=== PATIENT | male | born 1980 | race Caucasian/White ===

== ENCOUNTER 2017-02-08 02:51 | Emergency (ER) | payer BC ==
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
[2017-02-08] MEDS ORDERED: ONDANSETRON 4 MG TAB.RAPDIS PO ONE (07:21)
[2017-02-08] MEDS ORDERED: OXYCODONE-ACETAMINOPHEN 5-325 MG TABLET PO ONE ×2 (07:21→10:25)
[2017-02-08] MEDS ORDERED: DEXAMETHASONE SOD PHOS INJ 10 MG/1 ML VIAL IV ONE (08:57)
[2017-02-08 09:30] LABS: ABSOLUTE EOSINOPHILS # (AUTO) 0.4 10^3/uL (0.0-0.6); ABSOLUTE LYMPHOCYTES (AUTO) 2.3 10^3/uL (0.5-4.7); ABSOLUTE MONOCYTES (AUTO) 0.8 10^3/uL (0.1-1.4); ABSOLUTE NEUT (AUTO) 4.3 10^3/uL (1.7-8.2); BASOPHILS % (AUTO) 0.3 % (0-2); HEMATOCRIT 44.7 % (37.9-51.0); HEMOGLOBIN 15.1 g/dL (13.5-17.0); HGB HCT DIFFERENCE 0.6; LYMPHOCYTES % (AUTO) 29.7 % (13-45); MEAN CORPUSCULAR HEMOGLOBIN 30.1 pg (27.0-33.4); MEAN CORPUSCULAR HGB CONC 33.9 g/dL (32.0-36.0); MEAN CORPUSCULAR VOLUME 89 fl (80-97); MONOCYTES % (AUTO) 9.8 % (3-13); RED BLOOD COUNT 5.03 10^6/uL (4.35-5.55); RED CELL DISTRIBUTION WIDTH 13.4 % (11.5-14.0); SEGMENTED NEUTROPHILS % (AUTO) 55.2 % (42-78); WHITE BLOOD COUNT 7.8 10^3/uL (4.0-10.5)
[2017-02-08 09:48] LABS: ALANINE AMINOTRANSFERASE 26 U/L (21-72); ALBUMIN 4.1 g/dL (3.5-5.0); ALKALINE PHOSPHATASE 76 U/L (38-126); ANION GAP 12 (5-19); ASPARTATE AMINO TRANSFERASE 22 U/L (17-59); BILIRUBIN,DIRECT 0.1 mg/dL (0.0-0.4); BILIRUBIN,TOTAL 0.3 mg/dL (0.2-1.3); BLOOD UREA NITROGEN 13 mg/dL (7-20); CALCIUM 9.2 mg/dL (8.4-10.2); CARBON DIOXIDE 25 mmol/L (22-30); CHLORIDE 106 mmol/L (98-107); CREATININE RESULT 1.04 mg/dL (0.52-1.25); GLUCOSE 129 mg/dL (75-110); POTASSIUM 4.6 mmol/L (3.6-5.0); SODIUM 143.4 mmol/L (137-145)
[2017-02-08] MEDS ORDERED: CEFTRIAXONE 1 GM/D5W RTU 50 ML IV SCH (10:00)
[2017-02-08 10:07] LABS: ERYTHROCYTE SEDIMENTATION RATE 3 mm/hr (0-15)
[2017-02-08 10:41] VITALS: BP 118/84
== END 2017-02-08 10:37 | disposition home or self-care (01) ==
LOC: ER 02:51
DX: S05.91XA Unspecified injury of right eye and orbit, initial encounter (principal); L08.9 Local infection of the skin and subcutaneous tissue, unspecified; W50.0XXA Accidental hit or strike by another person, initial encounter; Z90.01 Acquired absence of eye; F17.200 Nicotine dependence, unspecified, uncomplicated
CPT/HCPCS: 99284; 96375; 96365; 36415; 87040; 85025; 85652; 80053; 70487; S0119; J0696; J1100

== ENCOUNTER 2017-03-03 19:05 | Emergency (ER) | payer BC ==
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
[2017-03-03] MEDS ORDERED: HYDROCODONE/ACETAMINOPHEN 5-325 MG 6 TAB/DSPK PO PRN (20:53)
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
[2017-03-03 21:17] VITALS: BP 129/79
== END 2017-03-03 21:10 | disposition home or self-care (01) ==
LOC: ER 19:05
DX: S09.90XA Unspecified injury of head, initial encounter (principal); S63.501A Unspecified sprain of right wrist, initial encounter; S83.92XA Sprain of unspecified site of left knee, initial encounter; S39.012A Strain of muscle, fascia and tendon of lower back, initial encounter; R51 Headache; M25.531 Pain in right wrist; M25.562 Pain in left knee; M54.5 Low back pain; Y04.8XXA Assault by other bodily force, initial encounter; F17.200 Nicotine dependence, unspecified, uncomplicated
CPT/HCPCS: 70450; 72110; 99284

== ENCOUNTER 2017-03-28 23:46 | Emergency (ER) | payer BC, OTHER ==
[2017-03-29] MEDS ORDERED: IBUPROFEN 600 MG TABLET PO ONE (03:18)
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
[2017-03-29] MEDS ORDERED: HYDROCODONE/ACETAMINOPHEN 5-325 MG 6 TAB/DSPK PO PRN (05:05)
[2017-03-29 07:54] VITALS: BP 124/63
== END 2017-03-29 07:35 | disposition home or self-care (01) ==
LOC: ER 23:46
DX: M25.521 Pain in right elbow (principal); S16.1XXA Strain of muscle, fascia and tendon at neck level, initial encounter; M25.531 Pain in right wrist; M54.5 Low back pain; M25.562 Pain in left knee; V29.60XA Unspecified motorcycle rider injured in collision with unspecified motor vehicles in traffic accident, initial encounter; Z88.0 Allergy status to penicillin; Z98.890 Other specified postprocedural states
CPT/HCPCS: 99284; 73562; 72110; 73110; 72125; L3984

== ENCOUNTER 2017-04-04 20:52 | Emergency (ER) | payer BC, OTHER ==
[2017-04-04] MEDS ORDERED: LIDOCAINE 1% INJ-PF (10 MG/ML) 30 ML SDV INJ ONE (22:34)
[2017-04-04] MEDS ORDERED: OXYCODONE-ACETAMINOPHEN 5-325 MG TABLET PO ONE (22:34)
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
[2017-04-05 00:07] VITALS: BP 116/79
== END 2017-04-05 00:05 | disposition home or self-care (01) ==
LOC: ER 20:52
PROC: 0H98XZZ Drainage of Buttock Skin, External Approach (ICD-10-PCS; principal; 2017-04-04)
DX: L02.31 Cutaneous abscess of buttock (principal); G89.29 Other chronic pain; M54.5 Low back pain; V29.9XXA Motorcycle rider (driver) (passenger) injured in unspecified traffic accident, initial encounter; Z88.0 Allergy status to penicillin; Z87.891 Personal history of nicotine dependence
CPT/HCPCS: 99283; 10060; J3490

== ENCOUNTER 2017-04-10 18:37 | Observation (INO) | payer BC ==
[2017-04-10] MEDS ORDERED: MORPHINE SULFATE 10 MG/ML INJ IV ONE ×2 (19:15→20:07)
--- NOTE | 2017-04-10 19:20 | ER Document Report ---
HPI - HPI Patient complains to provider of: abscess Onset: Other - 2 weeks Onset/Duration: Worse Quality of pain: Sharp Pain Level: 5 Context: Complains of abscess to buttock that started 2 weeks ago. Patient states he was seen here 1 week ago and had this area drained and was placed on antibiotics. Patient states he has been compliant with taking his Keflex and Bactrim but reports increased tenderness and chills and subjective fever at home. Patient denies any history of MRSA or any history of Crohn's disease. Associated Symptoms: Chills, Fever, Other - Abscess to buttock Exacerbated by: Movement Relieved by: Denies Similar symptoms previously: Yes Recently seen / treated by doctor: Yes - ROS ROS below otherwise negative: Yes Systems Reviewed and Negative: Yes All other systems reviewed and negative - CONSTITUTIONAL Constitutional: REPORTS: Fever, Chills - NEURO Neurology: DENIES: Weakness - CARDIOVASCULAR Cardiovascular: DENIES: Chest pain - GASTROINTESTINAL Gastrointestinal: DENIES: Nausea, Patient vomiting - DERM Skin Color: Normal Notes: abscess to left buttock Past Medical History - General Information source: Patient - Social History Smoking Status: Current Every Day Smoker - vape Chew tobacco use (# tins/day): No Frequency of alcohol use: None Drug Abuse: None Occupation: none Family History: Reviewed & Not Pertinent Patient has suicidal ideation: No Patient has homicidal ideation: No - Medical History Medical History: Negative - Past Medical History Cardiac Medical History: Denies: Hx Coronary Artery Disease, Hx Heart Attack, Hx Hypertension Pulmonary Medical History: Denies: Hx Asthma, Hx Bronchitis, Hx COPD, Hx Pneumonia Neurological Medical History: Denies: Hx Cerebrovascular Accident, Hx Seizures Endocrine Medical History: Denies: Hx Diabetes Mellitus Type 1, Hx Diabetes Mellitus Type 2 Renal/ Medical History: Denies: Hx Peritoneal Dialysis GI Medical History: Denies: Hx Hepatitis, Hx Hiatal Hernia, Hx Ulcer Musculoskeltal Medical History: Denies Hx Arthritis Skin Medical History: Denies Hx MRSA Psychiatric Medical History: Denies: Hx Depression Infectious Medical History: Denies: Hx Hepatitis Past Surgical History: Reports: Hx Abdominal Surgery - 2 hernia, Hx Inguinal Hernia - 2 hernias, Hx Orthopedic Surgery - 2x on left knee, Other - right eye surgery. Denies: Hx Open Heart Surgery, Hx Pacemaker - Immunizations Hx Diphtheria, Pertussis, Tetanus Vaccination: Yes Hx Pneumococcal Vaccination: 10/11/00 Vertical Provider Document - CONSTITUTIONAL Agree With Documented VS: Yes Exam Limitations: No Limitations General Appearance: WD/WN, No Apparent Distress - INFECTION CONTROL TRAVEL OUTSIDE OF THE [place] IN LAST 30 DAYS: No - HEENT HEENT: Atraumatic, Normocephalic - NECK Neck: Normal Inspection, Supple - RESPIRATORY Respiratory: Breath Sounds Normal, No Respiratory Distress O2 Sat by Pulse Oximetry: 97 - CARDIOVASCULAR Cardiovascular: Regular Rate, Regular Rhythm - GI/ABDOMEN Notes: RN Rickie as standby Patient with erythematous, tender indurated area to left buttock that extend to the perianal area. Patient with tenderness with digital rectal exam. - MUSCULOSKELETAL/EXTREMETIES Musculoskeletal/Extremeties: MAEW - NEURO Level of Consciousness: Awake, Alert, Appropriate Motor/Sensory: No Motor Deficit - DERM Integumentary: Warm, Dry Course - Re-evaluation Re-evalutation: 04/10/17 19:[address] Whitt who agrees to evaluate patient in the emergency department. 04/10/17 19:54 dr Whitt to bedside for exam 04/10/17 20:00 Dr Whitt recommends NS 150 ml/hr and levaquin 750 mg iv, plans to take pt to OR - Vital Signs Vital signs: Temp Pulse Resp BP Pulse Ox 98.3 F 94 18 120/76 97 04/10/17 18:57 04/10/17 18:57 04/10/17 18:57 04/10/17 18:57 04/10/17 18:57 - Laboratory Result Diagrams: 04/10/17 19:30 04/10/17 19:30 Laboratory results interpreted by me: 04/10/17 20:17 Labs- All tests 24 hr 04/10/17 04/10/17 19:30 19:30 WBC 9.1 RBC 5.04 Hgb 15.0 Hct 45.3 MCV 90 MCH 29.7 MCHC 33.1 RDW 12.2 Plt Count 204 Seg Neutrophils % 68.4 Lymphocytes % 18.3 Monocytes % 10.8 Eosinophils % 2.1 Basophils % 0.4 Absolute Neutrophils 6.2 Absolute Lymphocytes 1.7 Absolute Monocytes 1.0 Absolute Eosinophils 0.2 Absolute Basophils 0.0 Sodium 141.7 Potassium 4.4 Chloride 105 Carbon Dioxide 26 Anion Gap 11 BUN 16 Creatinine 0.97 Est GFR ( Amer) > 60 Est GFR (Non-Af Amer) > 60 Glucose 81 Calcium 9.2 Discharge - Discharge Clinical Impression: Perianal abscess Condition: Stable Disposition: ADMITTED OBSERVATION Admitting Provider: Surgicalist Unit Admitted: Medical Floor
[2017-04-10 19:41] LABS: ABSOLUTE EOSINOPHILS # (AUTO) 0.2 10^3/uL (0.0-0.6); ABSOLUTE LYMPHOCYTES (AUTO) 1.7 10^3/uL (0.5-4.7); ABSOLUTE NEUT (AUTO) 6.2 10^3/uL (1.7-8.2); BASOPHILS % (AUTO) 0.4 % (0-2); EOSINOPHILS % (AUTO) 2.1 % (0-6); HEMATOCRIT 45.3 % (37.9-51.0); HGB HCT DIFFERENCE -0.3; LYMPHOCYTES % (AUTO) 18.3 % (13-45); MEAN CORPUSCULAR HEMOGLOBIN 29.7 pg (27.0-33.4); MEAN CORPUSCULAR HGB CONC 33.1 g/dL (32.0-36.0); MEAN CORPUSCULAR VOLUME 90 fl (80-97); MONOCYTES % (AUTO) 10.8 % (3-13); RED BLOOD COUNT 5.04 10^6/uL (4.35-5.55); RED CELL DISTRIBUTION WIDTH 12.2 % (11.5-14.0); SEGMENTED NEUTROPHILS % (AUTO) 68.4 % (42-78); WHITE BLOOD COUNT 9.1 10^3/uL (4.0-10.5)
[2017-04-10] MEDS ORDERED: NORMAL SALINE 1000 ML 1,000 ML IV PRN ×2 (19:59→22:16)
[2017-04-10] MEDS ORDERED: LEVOFLOXACIN RTU 750 MG/D5W 150 ML IV ONE (19:59)
[2017-04-10 20:00] LABS: ANION GAP 11 (5-19); BLOOD UREA NITROGEN 16 mg/dL (7-20); CALCIUM 9.2 mg/dL (8.4-10.2); CARBON DIOXIDE 26 mmol/L (22-30); CHLORIDE 105 mmol/L (98-107); CREATININE RESULT 0.97 mg/dL (0.52-1.25); GLUCOSE 81 mg/dL (75-110); POTASSIUM 4.4 mmol/L (3.6-5.0); SODIUM 141.7 mmol/L (137-145)
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
[2017-04-10] MEDS ORDERED: ONDANSETRON HCL INJ/PF 4 MG/2 ML SDV ONE (20:59)
[2017-04-10] MEDS ORDERED: IBUPROFEN INJ 800 MG/8 ML VIAL IV ONE (20:59)
[2017-04-10] MEDS ORDERED: PROPOFOL INJ 200 MG/20 ML VIAL IV ONE (20:59)
[2017-04-10] MEDS ORDERED: ACETAMINOPHEN 100 ML IV ONE (20:59)
[2017-04-10] MEDS ORDERED: FENTANYL CITRATE INJ/PF 100 MCG/2 ML AMPUL ONE (20:59)
[2017-04-10] MEDS ORDERED: MIDAZOLAM 2 MG/2 ML INJ ONE (20:59)
[2017-04-10] MEDS ORDERED: LIDOCAINE 1% INJ-PF (10 MG/ML) 30 ML SDV ONE (21:07)
[2017-04-10] MEDS ORDERED: FENTANYL CITRATE INJ/PF 100 MCG/2 ML AMPUL IV PRN ×3 (21:34)
[2017-04-10] MEDS ORDERED: DIPHENHYDRAMINE HCL 50 MG/ML VIAL IV PRN (21:34)
[2017-04-10] MEDS ORDERED: MORPHINE SULFATE 10 MG/ML INJ IV PRN (21:34)
[2017-04-10] MEDS ORDERED: PROMETHAZINE HCL INJ 25 MG/1 ML VIAL IV PRN ×2 (21:34)
[2017-04-10] MEDS ORDERED: MEPERIDINE HCL/PF INJ 25 MG/1 ML DISP.SYRIN IV PRN (21:34)
[2017-04-10] MEDS ORDERED: HYDROMORPHONE HCL INJ/PF 2 MG/ML AMPULE IV PRN (22:14)
[2017-04-10] MEDS ORDERED: OXYCODONE-ACETAMINOPHEN 5-325 MG TABLET PO PRN (22:14)
[2017-04-10] MEDS ORDERED: ONDANSETRON HCL INJ/PF 4 MG/2 ML SDV IV PRN (22:16)
[2017-04-10 23:00] VITALS: BP 114/72
[2017-04-10] MEDS ORDERED: METRONIDAZOLE 500 MG/NS RTU 100 ML IV ONE (23:00)
--- NOTE | 2017-04-10 23:08 | OPERATIVE REPORT E ---
Operative Report NAME: TONYA GARCIA : 1980 AGE: 36Y DATE OF SURGERY: 04/10/2017 ROOM: 436 PREOPERATIVE DIAGNOSIS: Recurrent left perianal abscess. POSTOPERATIVE DIAGNOSIS: Recurrent left perianal abscess. PROCEDURE: Incision and drainage of recurrent perianal abscess. SURGEON: DIONNA SOLOMON M.D. ANESTHESIA: Local MAC. INDICATION: This is a 36-year-old male who had a left perianal abscess drained in the ER about a week ago. Unfortunately, patient has continued to have pain, and it worsened today, and went to the emergency room. He had an abscess that is recurrent in the site that was drained. DESCRIPTION OF PROCEDURE: After adequate IV sedation, the patient was placed in the lithotomy position and the perianal area prepped and draped in the usual sterile fashion. Local anesthesia infiltrated around the abscess site of the perianal area. Rectal exam was done, but no evidence of fistula noted. A longitudinal incision made over the most prominent part of the abscess and purulent material extruded out. Cultures were obtained. Incision enlarged to a distance of about 2 cm. The cavity was probed towards the rectum, but no evidence of any connection noted, and therefore no definite fistula noted. The cavity was then irrigated copiously with saline solution. Hemostasis then obtained with cautery. The cavity was then packed with quarter-inch iodoform gauze. Sterile dressings were placed over the operative site. Needle, instrument, and sponge count were all correct. Estimated blood loss was about 15 mL. The patient was brought to the PACU in satisfactory condition. DICTATING PHYSICIAN: DIONNA SOLOMON M.D. [id number] PHY#: [id number] ID: [id number] JOB#: [id number] ACCT: [id number] cc:DIONNA SOLOMON M.D. >
[2017-04-11] MEDS ORDERED: METRONIDAZOLE 500 MG/NS RTU 100 ML IV SCH (06:00)
--- NOTE | 2017-05-07 15:29 | DISCHARGE SUMMARY E ---
Discharge Summary NAME: TONYA GARCIA : 1980 AGE: 36Y ADMITTED: 04/10/2017 DISCHARGED: 04/10/2017 FINAL DIAGNOSIS: Left perianal abscess, recurrent. PROCEDURE: Incision and drainage of recurrent perianal abscess 04/10/2017. HOSPITAL COURSE: This is a 36-year-old male who had a left perianal abscess drain in the ER about a week prior to today. Unfortunately, the abscess recurred and the patient is complaining of severe left perianal pains. The abscess was drained in the OR under local MAC. A lot of pus was removed and the area was packed with Iodoform gauze. The patient was discharged on the same day to be followed up in the surgical clinic in about 2-3 days. A prescription for antibiotics was given to the patient as well as Percocet p.r.n. for pain. He was advised not to do any heavy lifting for the next week until seen in the clinic. No more than 15-20 pounds. Also, he can have a low-residue diet. DICTATING PHYSICIAN: DIONNA SOLOMON M.D. [id number] PHY#: [id number] ID: [id number] JOB#: [id number] ACCT: [id number] cc:DIONNA SOLOMON M.D. >
== END 2017-04-10 23:07 | disposition left against medical advice (07) ==
LOC: ER 18:37 → EH 20:37 → 4S 22:47
PROVIDERS: ADMIT Surgery; ATTEND Surgery
PROC: 0D9Q0ZZ Drainage of Anus, Open Approach (ICD-10-PCS; principal; 2017-04-10 21:00)
DX: K61.0 Anal abscess (principal); F17.290 Nicotine dependence, other tobacco product, uncomplicated
CPT/HCPCS: 46050; 96376; 99284; 96375; 96365; 36415; 87040; 87070; 87205; 85025; 87075; 87077; 80048; 87186; J2250; J3010; J3490; J2270; J2405; J7030; J2704; J1956; J0131; J1741; 902; A6266

== ENCOUNTER 2017-04-11 07:17 | Emergency (ER) | payer BC ==
[2017-04-11] MEDS ORDERED: HYDROMORPHONE HCL INJ/PF 2 MG/ML AMPULE IM ONE (07:42)
--- NOTE | 2017-04-11 07:42 | ER Document Report ---
ED General - General Stated Complaint: POSSIBLE ABSCESS ON BOTTOM Time Seen by Provider: 04/11/17 07:35 Mode of Arrival: Ambulatory Information source: Patient Notes: 36-year-old male presents 1 day post abscess incision and drainage with complaints of pain. Patient notes no fevers or chills admits to pain, patient notes he did not take any pain medication prior to arrival TRAVEL OUTSIDE OF THE [place] IN LAST 30 DAYS: No - HPI Onset: Just prior to arrival Onset/Duration: Sudden Severity: Moderate Pain Level: 3 Associated symptoms: Other Exacerbated by: Movement Relieved by: Denies Similar symptoms previously: Yes Recently seen / treated by doctor: Yes - Related Data Allergies/Adverse Reactions: Penicillins Allergy (Severe, Verified 04/11/17 08:29) Hives Past Medical History - Social History Smoking Status: Never Smoker Cigarette use (# per day): No Chew tobacco use (# tins/day): No Smoking Education Provided: No Family History: Reviewed & Not Pertinent - Past Medical History Cardiac Medical History: Denies: Hx Coronary Artery Disease, Hx Heart Attack, Hx Hypertension Pulmonary Medical History: Denies: Hx Asthma, Hx Bronchitis, Hx COPD, Hx Pneumonia Neurological Medical History: Denies: Hx Cerebrovascular Accident, Hx Seizures Endocrine Medical History: Denies: Hx Diabetes Mellitus Type 1, Hx Diabetes Mellitus Type 2 Renal/ Medical History: Denies: Hx Peritoneal Dialysis GI Medical History: Denies: Hx Hepatitis, Hx Hiatal Hernia, Hx Ulcer Musculoskeltal Medical History: Denies Hx Arthritis Skin Medical History: Denies Hx MRSA Psychiatric Medical History: Denies: Hx Depression Infectious Medical History: Denies: Hx Hepatitis Past Surgical History: Reports: Hx Abdominal Surgery - 2 hernia, Hx Inguinal Hernia - 2 hernias, Hx Orthopedic Surgery - 2x on left knee, Other - right eye surgery. Denies: Hx Open Heart Surgery, Hx Pacemaker - Immunizations Hx Diphtheria, Pertussis, Tetanus Vaccination: Yes Hx Pneumococcal Vaccination: 10/11/00 Review of Systems - Review of Systems Notes: REVIEW OF SYSTEMS: CONSTITUTIONAL : Denies fever, chills, or sweats. Denies recent illness. EENT: Denies eye, ear, throat, or mouth pain or symptoms. Denies nasal or sinus congestion or discharge. Denies throat, tongue, or mouth swelling or difficulty swallowing. CARDIOVASCULAR: Denies chest pain. Denies palpitations or racing or irregular heart beat. Denies ankle edema. RESPIRATORY: Denies cough, cold, or chest congestion. Denies shortness of breath, difficulty breathing, or wheezing. GASTROINTESTINAL: Denies abdominal pain or distention. Denies nausea, vomiting , or diarrhea. Denies blood in vomitus, stools, or per rectum. Denies black, tarry stools. Denies constipation. GENITOURINARY: Denies difficulty urinating, painful urination, burning, frequency, blood in urine, or discharge. MUSCULOSKELETAL: Denies back or neck pain or stiffness. Denies joint pain or swelling. SKIN: Admits to left buttocks pain HEMATOLOGIC : Denies easy bruising or bleeding. LYMPHATIC: Denies swollen, enlarged glands. NEUROLOGICAL: Denies confusion or altered mental status. Denies passing out or loss of consciousness. Denies dizziness or lightheadedness. Denies headache. Denies weakness or paralysis or loss of use of either side. Denies problems with gait or speech. Denies sensory loss, numbness, or tingling. Denies seizures. PSYCHIATRIC: Denies anxiety or stress. Denies depression, suicidal ideation, or homicidal ideation. ALL OTHER SYSTEMS REVIEWED AND NEGATIVE. Dictation was performed using [employer] voice recognition software PHYSICAL EXAMINATION: GENERAL: Well-appearing, well-nourished and in no acute distress. HEAD: Atraumatic, normocephalic. EYES: Pupils equal round and reactive to light, extraocular movements intact, sclera anicteric, conjunctiva are normal. ENT: Nares patent, oropharynx clear without exudates. Moist mucous membranes. NECK: Normal range of motion, supple without lymphadenopathy LUNGS: Breath sounds clear to auscultation bilaterally and equal. No wheezes rales or rhonchi. HEART: Regular rate and rhythm without murmurs ABDOMEN: Soft, nontender, nondistended abdomen. No guarding, no rebound. No masses appreciated. Musculoskeletal: Normal range of motion, no pitting or edema. No cyanosis. NEUROLOGICAL: Cranial nerves grossly intact. Normal speech, normal gait. Normal sensory, motor exams PSYCH: Normal mood, normal affect. SKIN: Incision with packing of the left buttocks no fluctuance noted significant erythema it is tender to palpation Physical Exam - Vital signs Vitals: Temp Pulse Resp BP Pulse Ox 98.1 F 68 18 99/56 L 95 04/11/17 07:28 04/11/17 07:28 04/11/17 07:28 04/11/17 07:28 04/11/17 07:28 Course - Re-evaluation Re-evalutation: 04/11/17 07:57 Patient is having obvious pain post surgical incision, he will be given pain control otherwise is in no life-threatening distress 04/11/17 09:58 Patient sitting on his buttocks now after 2 mg of Dilaudid, he will be discharged given that he has had pain control After performing a Medical Screening Examination, I estimate there is LOW risk for OPEN FRACTURE, COMPARTMENT SYNDROME, TENDON RUPTURE, ACUTE NEUROVASCULAR INJURY, or RETAINED FOREIGN BODY, thus I consider the discharge disposition reasonable. Also, there is no evidence or peritonitis, sepsis, or toxicity. I have reevaluated this patient multiple times and no significant life threatening changes are noted. The patient and I have discussed the diagnosis and risks, and we agree with discharging home with close follow-up with the understanding that symptoms and presentations can change. We also discussed returning to the Emergency Department immediately if new or worsening symptoms occur. We have discussed the symptoms which are most concerning (e.g., changing or worsening pain, fever, numbness, weakness, cool or painful digits) that necessitate immediate return. - Vital Signs Vital signs: Temp Pulse Resp BP Pulse Ox 98.1 F 68 18 99/56 L 95 04/11/17 07:28 04/11/17 07:28 04/11/17 07:28 04/11/17 07:28 04/11/17 07:28 Discharge - Discharge Clinical Impression: Perianal abscess, Anal pain Condition: Stable Disposition: HOME, SELF-CARE Instructions: Abscess ([facility]), Post Incision and Drainage Additional Instructions: Please follow-up with surgery clinic per previous instruction Prescriptions: Oxycodone HCl/Acetaminophen [Percocet 5-325 mg Tablet] 1 - 2 tab PO Q4H PRN #25 tablet PRN Reason:
[2017-04-11] MEDS ORDERED: HYDROMORPHONE HCL INJ/PF 2 MG/ML AMPULE IV ONE (08:46)
[2017-04-11 10:12] VITALS: BP 128/87
== END 2017-04-11 10:14 | disposition home or self-care (01) ==
LOC: ER 07:17
DX: K62.89 Other specified diseases of anus and rectum (principal); K61.0 Anal abscess; Z88.0 Allergy status to penicillin
CPT/HCPCS: 99283; 96372; 96374; J1170

== ENCOUNTER 2017-07-17 20:30 | Emergency (ER) | payer BC, OTHER ==
--- NOTE | 2017-07-17 21:19 | RADIOLOGY REPORT (SQ) ---
EXAM DESCRIPTION: HAND RIGHT 3 VIEWS COMPLETED DATE/TIME: 07/17/2017 9:02 pm REASON FOR STUDY: injury COMPARISON: 08/14/2015 EXAM PARAMETERS: NUMBER OF VIEWS: Three views. TECHNIQUE: AP, lateral and oblique radiographic images acquired of the right hand. LIMITATIONS: None. FINDINGS: MINERALIZATION: Normal. BONES: Postsurgical changes are present, consistent with open reduction, internal fixation of the dis ofelia radius and scaphoid; there is no evidence of hardware fracture, perihardware lucency or migration . A persistent lucency is seen of the scaphoid waist. An anchor is seen within the lunate. A chron ic ulnar styloid fracture is present. JOINTS: No effusions. SOFT TISSUES: No soft tissue swelling. No foreign body. OTHER: No other significant finding. IMPRESSION: No evidence of acute osseous injury. Status post ORIF of the scaphoid and distal radius , noting a chronic fracture of the ulnar styloid and an anchor within the lunate. TECHNICAL DOCUMENTATION: JOB ID: [id number] [employer]- All Rights Reserved
--- NOTE | 2017-07-17 21:20 | RADIOLOGY REPORT (SQ) ---
EXAM DESCRIPTION: SHOULDER RIGHT 2 OR MORE VIEWS COMPLETED DATE/TIME: 07/17/2017 9:02 pm REASON FOR STUDY: injury COMPARISON: 09/08/2015 NUMBER OF VIEWS: Three views. TECHNIQUE: Internal rotation, external rotation, and Y view images acquired of the right shoulder. LIMITATIONS: None. FINDINGS: MINERALIZATION: Normal. BONES: No acute fracture or dislocation. No worrisome bone lesions. JOINTS: No dislocation. VISUALIZED LUNGS AND RIBS: No pneumothorax. No rib fracture. SOFT TISSUES: No radiopaque foreign body. OTHER: No other significant finding. IMPRESSION: NEGATIVE STUDY OF THE RIGHT SHOULDER. NO RADIOGRAPHIC EVIDENCE OF ACUTE INJURY. TECHNICAL DOCUMENTATION: JOB ID: [id number] [employer]- All Rights Reserved
--- NOTE | 2017-07-17 21:22 | RADIOLOGY REPORT (SQ) ---
EXAM DESCRIPTION: FOREARM RIGHT COMPLETED DATE/TIME: 07/17/2017 9:02 pm REASON FOR STUDY: injury COMPARISON: Wrist radiographs 03/29/2017 NUMBER OF VIEWS: Two views. TECHNIQUE: Two radiographic images acquired of the right forearm, including elbow and wrist in at le ast one projection. LIMITATIONS: None. FINDINGS: MINERALIZATION: Normal. BONES: Status post open reduction, internal fixation of the distal radius and scaphoid. An anchor is seen within the lunate. A chronic ulnar styloid fracture is present. No acute fractures are identi fied. SOFT TISSUES: Dystrophic calcifications are seen within the soft tissues adjacent to the distal humer us. OTHER: No other significant finding. IMPRESSION: Status post ORIF of the distal radius and scaphoid, without evidence of hardware complic ation. No acute findings. TECHNICAL DOCUMENTATION: JOB ID: [id number] [employer]- All Rights Reserved
[2017-07-17] MEDS ORDERED: HYDROCODONE/ACETAMINOPHEN 5-325 MG 6 TAB/DSPK PO PRN (22:26)
[2017-07-17] MEDS ORDERED: OXYCODONE-ACETAMINOPHEN 5-325 MG TABLET PO ONE (22:26)
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
[2017-07-17 23:02] VITALS: BP 110/73
== END 2017-07-17 23:01 | disposition home or self-care (01) ==
LOC: ER 20:30
DX: S47.1XXA Crushing injury of right shoulder and upper arm, initial encounter (principal); W22.8XXA Striking against or struck by other objects, initial encounter; F17.210 Nicotine dependence, cigarettes, uncomplicated
CPT/HCPCS: 99283; 73090; 73130; 73030; L3908

== ENCOUNTER 2017-07-29 20:45 | Emergency (ER) | payer BC ==
[2017-07-29] MEDS ORDERED: ONDANSETRON HCL INJ/PF 4 MG/2 ML SDV IV ONE (21:17)
[2017-07-29] MEDS ORDERED: FENTANYL CITRATE INJ/PF 100 MCG/2 ML AMPUL IV ONE (21:17)
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
[2017-07-29 21:42] LABS: ABSOLUTE BASOPHILS # (AUTO) 0.1 10^3/uL (0.0-0.2); ABSOLUTE EOSINOPHILS # (AUTO) 0.4 10^3/uL (0.0-0.6); ABSOLUTE LYMPHOCYTES (AUTO) 2.4 10^3/uL (0.5-4.7); ABSOLUTE MONOCYTES (AUTO) 0.6 10^3/uL (0.1-1.4); ABSOLUTE NEUT (AUTO) 3.9 10^3/uL (1.7-8.2); BASOPHILS % (AUTO) 1.1 % (0-2); EOSINOPHILS % (AUTO) 4.8 % (0-6); HEMATOCRIT 43.8 % (37.9-51.0); HEMOGLOBIN 15.1 g/dL (13.5-17.0); HGB HCT DIFFERENCE 1.5; LYMPHOCYTES % (AUTO) 32.6 % (13-45); MEAN CORPUSCULAR HEMOGLOBIN 31.3 pg (27.0-33.4); MEAN CORPUSCULAR HGB CONC 34.5 g/dL (32.0-36.0); MEAN CORPUSCULAR VOLUME 91 fl (80-97); MONOCYTES % (AUTO) 8.4 % (3-13); RED BLOOD COUNT 4.83 10^6/uL (4.35-5.55); RED CELL DISTRIBUTION WIDTH 12.7 % (11.5-14.0); SEGMENTED NEUTROPHILS % (AUTO) 53.1 % (42-78); WHITE BLOOD COUNT 7.3 10^3/uL (4.0-10.5)
[2017-07-29 22:03] LABS: ANION GAP 12 (5-19); BLOOD UREA NITROGEN 20 mg/dL (7-20); CALCIUM 9.4 mg/dL (8.4-10.2); CARBON DIOXIDE 25 mmol/L (22-30); CHLORIDE 106 mmol/L (98-107); CREATININE RESULT 0.95 mg/dL (0.52-1.25); GLUCOSE 84 mg/dL (75-110); POTASSIUM 4.5 mmol/L (3.6-5.0); SODIUM 142.6 mmol/L (137-145)
[2017-07-29] MEDS ORDERED: HYDROMORPHONE HCL INJ/PF 2 MG/ML AMPULE IV ONE (22:07)
--- NOTE | 2017-07-29 22:25 | RADIOLOGY REPORT (SQ) ---
EXAM DESCRIPTION: CT HEAD WITHOUT COMPLETED DATE/TIME: 07/29/2017 10:04 pm REASON FOR STUDY: fall from height, pain COMPARISON: 03/03/2017 TECHNIQUE: Axial images acquired through the brain without intravenous contrast. Images reviewed wi th bone, brain and subdural windows. Images stored on PACS. All CT scanners at this facility use dose modulation, iterative reconstruction, and/or weight based d osing when appropriate to reduce radiation dose to as low as reasonably achievable (ALARA). [facility]: Dose Right [facility]: CareDose [facility]: Dose Right [facility]: Teradose 4D [facility]: [employer]ob RADIATION DOSE: Up-to-date CT equipment and radiation dose reduction techniques were employed. CTDIv ol: 62.6 mGy. DLP: 1163 mGy-cm. mGy. LIMITATIONS: None. FINDINGS: VENTRICLES: Normal size and contour. CEREBRUM: No masses. No hemorrhage. No midline shift. No evidence for acute infarction. Normal gra y/white matter differentiation. No areas of low density in the white matter. CEREBELLUM: No masses. No hemorrhage. No alteration of density. No evidence for acute infarction. EXTRAAXIAL SPACES: No fluid collections. No masses. ORBITS AND GLOBE: No intra- or extraconal masses. Normal contour of globe without masses. CALVARIUM: No fracture. PARANASAL SINUSES: No fluid or mucosal thickening. SOFT TISSUES: No mass or hematoma. OTHER: No other significant finding. IMPRESSION: No acute intracranial findings. EVIDENCE OF ACUTE STROKE: NO. COMMENT: Quality ID # 436: Final reports with documentation of one or more dose reduction techniques (e.g., Automated exposure control, adjustment of the mA and/or kV according to patient size, use of iterative reconstruction technique) TECHNICAL DOCUMENTATION: JOB ID: [id number] [employer]- All Rights Reserved
--- NOTE | 2017-07-29 22:28 | RADIOLOGY REPORT (SQ) ---
EXAM DESCRIPTION: CT CERVICAL SPINE WITHOUT COMPLETED DATE/TIME: 07/29/2017 10:07 pm REASON FOR STUDY: FALL FROM HEIGHT COMPARISON: 03/29/2017 TECHNIQUE: Axial images acquired through the cervical spine without intravenous contrast. Images re viewed with lung, soft tissue and bone windows. Reconstructed coronal and sagittal MPR images review ed. Images stored on PACS. All CT scanners at this facility use dose modulation, iterative reconstruction, and/or weight based d osing when appropriate to reduce radiation dose to as low as reasonably achievable (ALARA). [facility]: Dose Right [facility]: CareDose [facility]: Dose Right [facility]: Teradose 4D [facility]: Smart [employer] RADIATION DOSE: mGy. LIMITATIONS: None. FINDINGS: ALIGNMENT: Anatomic. MINERALIZATION: Normal. VERTEBRAL BODIES: No fractures or dislocation. DISCS: No significant disc disease. FACETS, LATERAL MASSES, POSTERIOR ELEMENTS: No fractures. No dislocation. No acute findings. HARDWARE: None in the spine. VISUALIZED RIBS: No fractures. LUNG APICES AND SOFT TISSUES: No significant or acute findings. OTHER: No other significant finding. IMPRESSION: NO ACUTE FINDINGS IN THE CERVICAL SPINE. TECHNICAL DOCUMENTATION: JOB ID: [id number] Quality ID # 436: Final reports with documentation of one or more dose reduction techniques (e.g., Au tomated exposure control, adjustment of the mA and/or kV according to patient size, use of iterative reconstruction technique) 2010 [employer]- All Rights Reserved
--- NOTE | 2017-07-29 22:36 | RADIOLOGY REPORT (SQ) ---
EXAM DESCRIPTION: CT CHEST WITH; CT ABD/PELVIS WITH IV ONLY COMPLETED DATE/TIME: 07/29/2017 10:07 pm REASON FOR STUDY: fall from height, pain; FALL FROM HEIGHT, PAIN CONTRAST TYPE AND DOSE: contrast/concentration: Isovue 370.00 mg/ml; Total Contrast Delivered: 100.0 ml; Total Saline Delivered: 52.0 ml RENAL FUNCTION: None required. The patient is less than 50 years old. COMPARISON: None. TECHNIQUE: CT scan of the chest performed using helical scanning technique with dynamic intravenous contrast injection. Images reviewed with lung, soft tissue and bone windows. Reconstructed coronal a nd sagittal MPR images reviewed. All images stored on PACS. All CT scanners at this facility use dose modulation, iterative reconstruction, and/or weight based d osing when appropriate to reduce radiation dose to as low as reasonably achievable (ALARA). [facility]: Dose Right [facility]: CareDose [facility]: Dose Right [facility]: Kanmu [facility]: [employer] RADIATION DOSE: . LIMITATIONS: None. FINDINGS: AXILLAE: No adenopathy. CHEST WALL: No masses. No subcutaneous air. LUNGS: No nodules or masses. No pneumothorax. No infiltrates. PLEURA: No effusions. No calcifications. THYROID: No masses or significant asymmetry. HILAR AND MEDIASTINAL STRUCTURES: No identified masses or abnormal nodes. AORTA AND GREAT VESSELS: No aneurysm. No dissection. PULMONARY ARTERIES: No identified pulmonary emboli. Study not optimized for the pulmonary arteries. HEART: No pericardial effusion. HARDWARE AND LIFELINES: None. BONES: No significant finding. OTHER: No other significant finding. IMPRESSION: No acute findings. COMPARISON: None. RADIATION DOSE: mGy. TECHNIQUE: CT scan of the abdomen and pelvis performed with intravenous and oral contrast using erma stevo scanning technique with dynamic intravenous contrast injection. Images reviewed with lung, soft tissue and bone windows. Reconstructed coronal and sagittal MPR images reviewed. Delayed images for evaluation of the urinary system also acquired and evaluated. All images stored on PACS. All CT scanners at this facility use dose modulation, iterative reconstruction, and/or weight based d osing when appropriate to reduce radiation dose to as low as reasonably achievable (ALARA). [facility]: Dose Right [facility]: SureCare [facility]: Dose Right [facility]: Thinkre 4D [facility]: [employer]ino FINDINGS: LIVER: Normal size. No masses. No dilated ducts. SPLEEN: Normal size. No focal lesions. PANCREAS: No masses. No significant calcifications. No adjacent inflammation or peripancreatic flui d collections. Pancreatic duct not dilated. GALLBLADDER: No identified stones by CT criteria. No inflammatory changes to suggest cholecystitis. ADRENAL GLANDS: No significant masses or asymmetry. RIGHT KIDNEY AND URETER: No solid masses. No significant calcification. No hydronephrosis or hydroure ter. LEFT KIDNEY AND URETER: No solid masses. No significant calcification. No hydronephrosis or hydrouret er. AORTA AND VESSELS: No aneurysm. No dissection. Renal arteries, SMA, celiac without stenosis. RETROPERITONEUM: No retroperitoneal adenopathy, hemorrhage or masses. LARGE AND SMALL BOWEL: No dilatation. No masses. No wall thickening. APPENDIX: Normal. ABDOMINAL WALL: No hernia or masses. PERITONEAL CAVITY: No free air. No free fluid. No peritoneal implants or masses. PELVIS: No mass or free fluid. Normal bladder. BONES: No significant or acute findings. OTHER: No other significant finding. IMPRESSION: No acute findings. TECHNICAL DOCUMENTATION: JOB ID: [id number] Quality ID # [id number]: Final reports with documentation of one or more dose reduction techniques (e.g., Au tomated exposure control, adjustment of the mA and/or kV according to patient size, use of iterative reconstruction technique) 2010 [employer]- All Rights Reserved
--- NOTE | 2017-07-29 22:36 | RADIOLOGY REPORT (SQ) ---
EXAM DESCRIPTION: CT CHEST WITH; CT ABD/PELVIS WITH IV ONLY COMPLETED DATE/TIME: 07/29/2017 10:07 pm REASON FOR STUDY: fall from height, pain; FALL FROM HEIGHT, PAIN CONTRAST TYPE AND DOSE: contrast/concentration: Isovue 370.00 mg/ml; Total Contrast Delivered: 100.0 ml; Total Saline Delivered: 52.0 ml RENAL FUNCTION: None required. The patient is less than 50 years old. COMPARISON: None. TECHNIQUE: CT scan of the chest performed using helical scanning technique with dynamic intravenous contrast injection. Images reviewed with lung, soft tissue and bone windows. Reconstructed coronal a nd sagittal MPR images reviewed. All images stored on PACS. All CT scanners at this facility use dose modulation, iterative reconstruction, and/or weight based d osing when appropriate to reduce radiation dose to as low as reasonably achievable (ALARA). [facility]: Dose Right [facility]: CareDose [facility]: Dose Right [facility]: weartolook [facility]: [employer] RADIATION DOSE: . LIMITATIONS: None. FINDINGS: AXILLAE: No adenopathy. CHEST WALL: No masses. No subcutaneous air. LUNGS: No nodules or masses. No pneumothorax. No infiltrates. PLEURA: No effusions. No calcifications. THYROID: No masses or significant asymmetry. HILAR AND MEDIASTINAL STRUCTURES: No identified masses or abnormal nodes. AORTA AND GREAT VESSELS: No aneurysm. No dissection. PULMONARY ARTERIES: No identified pulmonary emboli. Study not optimized for the pulmonary arteries. HEART: No pericardial effusion. HARDWARE AND LIFELINES: None. BONES: No significant finding. OTHER: No other significant finding. IMPRESSION: No acute findings. COMPARISON: None. RADIATION DOSE: mGy. TECHNIQUE: CT scan of the abdomen and pelvis performed with intravenous and oral contrast using erma stevo scanning technique with dynamic intravenous contrast injection. Images reviewed with lung, soft tissue and bone windows. Reconstructed coronal and sagittal MPR images reviewed. Delayed images for evaluation of the urinary system also acquired and evaluated. All images stored on PACS. All CT scanners at this facility use dose modulation, iterative reconstruction, and/or weight based d osing when appropriate to reduce radiation dose to as low as reasonably achievable (ALARA). [facility]: Dose Right [facility]: SureCare [facility]: Dose Right [facility]: [employer] 4D [facility]: BigBad FINDINGS: LIVER: Normal size. No masses. No dilated ducts. SPLEEN: Normal size. No focal lesions. PANCREAS: No masses. No significant calcifications. No adjacent inflammation or peripancreatic flui d collections. Pancreatic duct not dilated. GALLBLADDER: No identified stones by CT criteria. No inflammatory changes to suggest cholecystitis. ADRENAL GLANDS: No significant masses or asymmetry. RIGHT KIDNEY AND URETER: No solid masses. No significant calcification. No hydronephrosis or hydroure ter. LEFT KIDNEY AND URETER: No solid masses. No significant calcification. No hydronephrosis or hydrouret er. AORTA AND VESSELS: No aneurysm. No dissection. Renal arteries, SMA, celiac without stenosis. RETROPERITONEUM: No retroperitoneal adenopathy, hemorrhage or masses. LARGE AND SMALL BOWEL: No dilatation. No masses. No wall thickening. APPENDIX: Normal. ABDOMINAL WALL: No hernia or masses. PERITONEAL CAVITY: No free air. No free fluid. No peritoneal implants or masses. PELVIS: No mass or free fluid. Normal bladder. BONES: No significant or acute findings. OTHER: No other significant finding. IMPRESSION: No acute findings. TECHNICAL DOCUMENTATION: JOB ID: [id number] Quality ID # 436: Final reports with documentation of one or more dose reduction techniques (e.g., Au tomated exposure control, adjustment of the mA and/or kV according to patient size, use of iterative reconstruction technique) 2010 [employer]- All Rights Reserved
[2017-07-29] MEDS ORDERED: HYDROCODONE/ACETAMINOPHEN 5-325 MG 6 TAB/DSPK PO PRN (22:42)
[2017-07-29 22:51] VITALS: BP 108/71
== END 2017-07-29 22:58 | disposition home or self-care (01) ==
LOC: ER 20:45
DX: S09.90XA Unspecified injury of head, initial encounter (principal); M54.9 Dorsalgia, unspecified; W13.2XXA Fall from, out of or through roof, initial encounter; Y93.H3 Activity, building and construction; F17.200 Nicotine dependence, unspecified, uncomplicated; Z88.0 Allergy status to penicillin
CPT/HCPCS: 99284; 96374; 86900; 86901; 96375; 36415; 86850; 85025; 80048; 70450; 71260; 72125; 74177; L0120; J3010; J1170; J2405

== ENCOUNTER 2017-09-19 23:44 | Emergency (ER) | payer BC ==
[2017-09-19 23:51] VITALS: BP 125/77
[2017-09-20] MEDS ORDERED: ACETAMINOPHEN 325 MG TABLET PO ONE (00:11)
[2017-09-20] MEDS ORDERED: OXYCODONE-ACETAMINOPHEN 5-325 MG TABLET PO ONE (00:54)
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
--- NOTE | 2017-09-20 02:17 | RADIOLOGY REPORT (SQ) ---
EXAM DESCRIPTION: KNEE LEFT 4 VIEW CLINICAL HISTORY: 37 years, Male, fall COMPARISON: None. NUMBER OF VIEWS: 4 LIMITATIONS: None. 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 IMPRESSION: No acute findings. 2011 [employer]- All Rights Reserved
--- NOTE | 2017-09-20 02:18 | RADIOLOGY REPORT (SQ) ---
EXAM DESCRIPTION: L SPINE WHOLE CLINICAL HISTORY: 37 years, Male, fall COMPARISON: None. NUMBER OF VIEWS:5 FINDINGS: Mild disc desiccation between the L4 and S1 levels and moderate straightening of the lumbar spine. Normal vertebral and intervertebral heights. IMPRESSION: No acute findings. 2011 [employer]- All Rights Reserved
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
--- NOTE | 2017-09-20 02:32 | RADIOLOGY REPORT (SQ) ---
EXAM DESCRIPTION: HAND RIGHT 3 VIEWS (accession [id number]), WRIST RIGHT 3 VIEWS (accession [id number]) CLINICAL HISTORY: 37 years, Male, fall COMPARISON: None. NUMBER OF VIEWS: 6 LIMITATIONS: None. FINDINGS: No acute findings in an area of indicated symptomatology at the medial aspect of the distal right forearm. Osteotomy plate and screw fixation of the distal radius, screw fixation of the scaphoid with chronic deformity and moderate lucency at the proximal aspect of a scaphoid screw, metallic anchor fixation of the lunate, 0.7 cm ossicular fragmentation of the ulnar styloid, 0.7 cm developmental likely benign well-corticated lucent defect of the right third metacarpal head, [id number] radiocarpal osteoarthritis. IMPRESSION: No acute findings. Prior ORIF including lucency associated with a scaphoid fixation screw which may indicate loosening. 2011 [employer]- All Rights Reserved
--- NOTE | 2017-09-20 02:32 | RADIOLOGY REPORT (SQ) ---
EXAM DESCRIPTION: HAND RIGHT 3 VIEWS (accession [id number]), WRIST RIGHT 3 VIEWS (accession [id number]) CLINICAL HISTORY: 37 years, Male, fall COMPARISON: None. NUMBER OF VIEWS: 6 LIMITATIONS: None. FINDINGS: No acute findings in an area of indicated symptomatology at the medial aspect of the distal right forearm. Osteotomy plate and screw fixation of the distal radius, screw fixation of the scaphoid with chronic deformity and moderate lucency at the proximal aspect of a scaphoid screw, metallic anchor fixation of the lunate, 0.7 cm ossicular fragmentation of the ulnar styloid, 0.7 cm developmental likely benign well-corticated lucent defect of the right third metacarpal head, [id number] radiocarpal osteoarthritis. IMPRESSION: No acute findings. Prior ORIF including lucency associated with a scaphoid fixation screw which may indicate loosening. 2011 [employer]- All Rights Reserved
== END 2017-09-20 02:56 | disposition home or self-care (01) ==
LOC: ER 23:44
DX: R51 Headache (principal); H53.149 Visual discomfort, unspecified; M25.531 Pain in right wrist; M54.5 Low back pain; M25.569 Pain in unspecified knee; W10.9XXA Fall (on) (from) unspecified stairs and steps, initial encounter; Y92.009 Unspecified place in unspecified non-institutional (private) residence as the place of occurrence of the external cause; Z90.01 Acquired absence of eye; Z88.0 Allergy status to penicillin
CPT/HCPCS: 70450; 72110; 99284

== ENCOUNTER 2017-11-14 01:00 | Emergency (ER) | payer BC ==
[2017-11-14] MEDS ORDERED: HYDROCODONE/ACETAMINOPHEN 5-325 MG TABLET PO ONE (01:41)
[2017-11-14] MEDS ORDERED: CLINDAMYCIN HCL 150 MG CAPSULE PO ONE (01:41)
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
[2017-11-14] MEDS ORDERED: HYDROCODONE/ACETAMINOPHEN 5-325 MG (6 TAB/ER DISP) PO PRN (03:11)
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
[2017-11-14 03:29] VITALS: BP 103/65
== END 2017-11-14 03:26 | disposition home or self-care (01) ==
LOC: ER 01:00
DX: S63.501A Unspecified sprain of right wrist, initial encounter (principal); S16.1XXA Strain of muscle, fascia and tendon at neck level, initial encounter; S00.03XA Contusion of scalp, initial encounter; S30.871A Other superficial bite of abdominal wall, initial encounter; Y04.1XXA Assault by human bite, initial encounter; Y04.2XXA Assault by strike against or bumped into by another person, initial encounter; Z88.0 Allergy status to penicillin
CPT/HCPCS: 72125; 99284

== ENCOUNTER 2018-03-01 11:31 | Emergency (ER) | payer OTHER ==
[2018-03-01] MEDS ORDERED: KETOROLAC TROMETHAMINE 60 MG/2 ML SDV IM ONE (13:09)
[2018-03-01] MEDS ORDERED: DEXAMETHASONE SOD PHOS INJ 10 MG/1 ML VIAL IM ONE (13:09)
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
[2018-03-01 15:32] VITALS: BP 112/70
== END 2018-03-01 15:32 | disposition home or self-care (01) ==
LOC: ER 11:31
DX: S09.90XA Unspecified injury of head, initial encounter (principal); S80.01XA Contusion of right knee, initial encounter; S16.1XXA Strain of muscle, fascia and tendon at neck level, initial encounter; M54.9 Dorsalgia, unspecified; M25.532 Pain in left wrist; F17.210 Nicotine dependence, cigarettes, uncomplicated; V43.62XA Car passenger injured in collision with other type car in traffic accident, initial encounter; Z88.0 Allergy status to penicillin
CPT/HCPCS: 99406; 99283; 73562; 72110; 73110; 70450; 72125; J1885; J1100

== ENCOUNTER 2018-03-27 03:26 | Emergency (ER) | payer OTHER ==
[2018-03-27] MEDS ORDERED: KETOROLAC TROMETHAMINE INJ/PF 30 MG/1 ML SDV IV ONE (08:17)
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
[2018-03-27 10:34] VITALS: BP 124/74
== END 2018-03-27 10:32 | disposition home or self-care (01) ==
LOC: ER 03:26
DX: S16.1XXA Strain of muscle, fascia and tendon at neck level, initial encounter (principal); S40.812A Abrasion of left upper arm, initial encounter; S40.811A Abrasion of right upper arm, initial encounter; S80.812A Abrasion, left lower leg, initial encounter; S80.811A Abrasion, right lower leg, initial encounter; F17.200 Nicotine dependence, unspecified, uncomplicated; Y04.2XXA Assault by strike against or bumped into by another person, initial encounter; Y92.89 Other specified places as the place of occurrence of the external cause; Z88.0 Allergy status to penicillin
CPT/HCPCS: 99284; 96374; 72070; 70491; J1885

== ENCOUNTER 2018-04-04 09:14 | Emergency (ER) | payer OTHER ==
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
[2018-04-04] MEDS ORDERED: TETRACAINE HCL 0.5% OPH SOLN 2 ML OU ONE (10:01)
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
[2018-04-04 10:57] VITALS: BP 115/80
== END 2018-04-04 10:58 | disposition home or self-care (01) ==
LOC: ER 09:14
DX: H10.31 Unspecified acute conjunctivitis, right eye (principal); M54.2 Cervicalgia; Y08.89XA Assault by other specified means, initial encounter; Y92.59 Other trade areas as the place of occurrence of the external cause; Z90.01 Acquired absence of eye; F17.200 Nicotine dependence, unspecified, uncomplicated
CPT/HCPCS: 99283